=== PATIENT | female | born 1985 | race Two or more races ===

== ENCOUNTER 2018-02-19 10:46 | Inpatient (IN) | payer OTHER ==
[~2018-02-19] VITALS: Ht 162.6 cm; Wt 113.4 kg
[~2018-02-19 10:46] MED LIST: PRENATAL CAPLE1 EACH PO
[2018-03-27] MEDS ORDERED: PRENATAL FORMU1 EAC1 PO (09:53)
== END 2018-03-29 12:38 | disposition home or self-care (01) | DRG 775 ==
LOC: OB/GYN 03-25 15:30 → LDR 03-27 06:11 → OB/GYN 03-27 06:11 → LDR 03-27 06:33 → OB/GYN 03-27 16:26
PROC: 10E0XZZ Delivery of Products of Conception, External Approach (ICD-10-PCS; principal; 2018-03-27)
PROC: 0KQM0ZZ Repair Perineum Muscle, Open Approach (ICD-10-PCS; 2018-03-27)
PROC: 10907ZC Drainage of Amniotic Fluid, Therapeutic from Products of Conception, Via Natural or Artificial Opening (ICD-10-PCS; 2018-03-27)
PROC: 3E033VJ Introduction of Other Hormone into Peripheral Vein, Percutaneous Approach (ICD-10-PCS; 2018-03-27)
PROC: 4A1HXCZ Monitoring of Products of Conception, Cardiac Rate, External Approach (ICD-10-PCS; 2018-03-27)
DX: O48.0 Post-term pregnancy (principal); O70.1 Second degree perineal laceration during delivery; Z3A.40 40 weeks gestation of pregnancy; Z37.0 Single live birth

== ENCOUNTER 2018-03-26 15:57 | Outpatient (CLI) | payer OTHER ==
[2018-03-27] MEDS ORDERED: PRENATAL FORMU1 EAC1 PO (09:53)
== END 2018-03-26 16:30 | disposition home or self-care (01) ==
LOC: NST 15:57
DX: Z34.83 Encounter for supervision of other normal pregnancy, third trimester (principal)

== ENCOUNTER 2024-04-30 22:57 | Emergency (ER) | payer OTHER ==
[~2024-04-30] VITALS: Ht 162.6 cm; Wt 108.9 kg
[~2024-04-30 22:57] MED LIST changes: +PRENATAL FORMU1 EAC1 PO
[2024-04-30] MEDS ORDERED: CLONAZEPAM0.5 M1 PO (23:17)
[2024-05-01] MEDS ORDERED: ORPHENADRINE CITRATE 30 MG/ML AMPUL IM STA (01:52)
[2024-05-01] MEDS ORDERED: ORPHENADRINE CITRATE 30 MG/ML AMPUL ONE (01:59)
[2024-05-01 03:08] LABS: CALCIUM 9.6 mg/dL (8.5-10.1); CREATININE SERUM 1.28 mg/dL (0.55-1.02); GFR 46.18; POTASSIUM 4.27 mEq/L (3.5-5.1)
[2024-05-01 03:11] LABS: HEMATOCRIT 37.6 % (36.0-45.00); HEMOGLOBIN 12.6 g/dL (12.0-15.00); MEAN CELL VOLUME 75.2 fL (80.00-100.00); MEAN CORPUSCULAR HEMOGLOBIN 25.2 pg (27.00-32.0); MEAN CORPUSCULAR HGB CONC 33.5 g/dl (32.0-36.0); PLATELET COUNT 267 K/uL (150-450); RED BLOOD COUNT 5.01 M/uL (4.00-6.00)
[2024-05-01 03:42] LABS: RED CELL DISTRIBUTION WIDTH 19.1 % (11.5-14.5)
[2024-05-01] MEDS ORDERED: DOLOGESIC-DF 51 EACH PO (03:58)
[2024-05-01 04:06] VITALS: BP 130/80; O2SAT 98
== END 2024-05-01 04:07 ==
LOC: ER 22:58
PROVIDERS: General Practice
DX: R07.89 Other chest pain (principal); Z88.6 Allergy status to analgesic agent; F41.8 Other specified anxiety disorders

== ENCOUNTER 2024-09-25 06:10 | Day surgery (SDC) | payer OTHER ==
[~2024-09-25 06:10] MED LIST changes: +CLONAZEPAM0.5 M1 PO; +DOLOGESIC-DF 51 EACH PO
[2024-09-25] MEDS ORDERED: DIPHENHYDRAMINE HCL 50 MG/ML VIAL 1ML IV ONE (09:15)
[2024-09-25] MEDS ORDERED: MEPERIDINE HCL/PF 50 MG/ML VIAL IV ONE (09:15)
[2024-09-25] MEDS ORDERED: MIDAZOLAM HCL/PF 5 MG/ML VIAL IV ONE (09:15)
== END 2024-09-25 10:25 | disposition home or self-care (01) ==
LOC: AMB-ENDOS 06:10
PROVIDERS: ATTEND Surgery
DX: D13.1 Benign neoplasm of stomach (principal); E66.09 Other obesity due to excess calories; K44.9 Diaphragmatic hernia without obstruction or gangrene; Z88.6 Allergy status to analgesic agent; R10.13 Epigastric pain